=== PATIENT | male | born 1975 | race Caucasian/White ===

== ENCOUNTER → 2020-11-29 16:11 | Outpatient (CLI) | payer MEDICAID, SELFPAY ==
[2020-11-29 17:28] LABS: Absolute Neutrophil Count 4.2 X10^3/uL (2.0-7.7); Basophil# 0.05 X10^3/uL; Basophil% 0.7 % (0-1); Eosinophil# 0.21 X10^3/uL; Eosinophils% 2.8 % (0-5); Hematocrit 45.5 % (40-54); Hemoglobin 15.2 g/dL (13.0-16.5); Lymphocyte % 31.1 % (19-41); Mean Corp Hgb Conc 33.4 g/dL (32-36); Mean Corpuscular Hgb 28.9 pg (27.0-32.0); Mean Corpuscular Volume 86.5 fL (80-94); Monocyte# 0.61 X10^3/uL; Monocyte% 8.2 % (0-10); NRBC Flagged by Analyzer 0 % (0-5); Neutrophil # 4.16 X10^3/uL (2.7-7.7); Neutrophil % 56.3 % (47-70); Platelet Count 273 K/mm3 (150-450); RBC Distribution Width CV 12.9 % (11.6-14.6); RBC Distribution Width SD 40.3 fl (35.1-43.9); Red Blood Count 5.26 M/mm3 (4.6-6.2); White Blood Count 7.4 K/mm3 (4.4-11.0)
[2020-11-29 18:16] LABS: AST(SGOT) 30 U/L (15-37); Alanine Aminotransfer ALT/SGPT 60 U/L (16-61); Albumin, Serum 4.2 g/dL (3.2-5.0); Alkaline Phosphatase 146 U/L (45-117); Anion Gap 5 (5-15); BUN 16 mg/dL (7-18); BUN/Creat Ratio 16.2 RATIO (10-20); Calcium,Total 9.3 mg/dL (8.5-10.1); Chloride 103 mmol/L (98-107); Creatinine, Serum 0.99 mg/dL (0.70-1.30); EST Glomerular Filtration Rate 87 mL/min (>60); Est Glom Filt Rate - Afr Amer 105 mL/min (>60); Globulin 4.2 g/dL (2.2-4.2); Glucose 84 mg/dL (74-106); Magnesium 2.6 mg/dL (1.6-2.6); Potassium 3.8 mmol/L (3.5-5.1); Protein, Total 8.4 g/dL (6.4-8.2); Sodium Level 136 mmol/L (136-145); Thyroid Stim Hormone (TSH) 1.57 uIU/mL (0.358-3.74)
== END ==
PROVIDERS: PCP Family Medicine; Referring Provider Family Medicine; Visit Provider Family Medicine
DX: M62.838 Other muscle spasm (principal); R53.83 Other fatigue
CPT/HCPCS: 36415; 80053; 83735; 84443; 85025

== ENCOUNTER → 2021-01-14 15:31 | Outpatient (CLI) | payer MEDICAID, SELFPAY ==
[2021-01-14 14:14] VITALS: BMI 29.5
--- NOTE | 2021-01-14 15:37 | RAD_ITS ---
STUDY: X-RAY - CERVICAL SPINE REASON FOR EXAM: Male, 46 years old. Cervicalgia TECHNIQUE: 3 view(s) of the cervical spine were obtained. COMPARISON: None FINDINGS: Normal anterior atlantoaxial articulation. Normal odontoid process. Normal cervical lordosis. Mild degree of disc space narrowing and spondylosis at the C5-C6 and C6-C7 levels. Normal visualized intervertebral neuroforamina. The soft tissue structures are unremarkable. RAD/Cerv Spine 2 or 3 Views IMPRESSION: Mild degree of disc space narrowing and spondylosis at the C5-C6 and C6-C7 levels. Electronically Signed: Lucas Palma MD at 13:44 EDT , Service support ,
[2021-01-14 18:04] LABS: Vitamin B12 555 pg/mL (211-911)
== END ==
LOC: RAD 15:35 → LAB 15:46
PROVIDERS: PCP Family Medicine; Referring Provider Psychiatry & Neurology Neurology; Visit Provider Psychiatry & Neurology Neurology
DX: R53.83 Other fatigue (principal); M47.812 Spondylosis without myelopathy or radiculopathy, cervical region; M48.02 Spinal stenosis, cervical region
CPT/HCPCS: 36415; 72040; 82607; 82746

== ENCOUNTER → 2021-02-08 06:56 | Outpatient (CLI) | payer MEDICAID, SELFPAY ==
[2021-01-14 14:14] VITALS: BMI 29.5
--- NOTE | 2021-02-08 07:55 | TELEMED_ITS ---
[facility] has confirmed receipt of a request for visit. This document confirms receipt of the order initiating the consult. To find the results of the consultation, please view the patient's reports for the scanned Telemed Consult.
== END ==
PROVIDERS: PCP Family Medicine; Referring Provider Psychiatry & Neurology Neurology; Visit Provider Psychiatry & Neurology Neurology
DX: F81.9 Developmental disorder of scholastic skills, unspecified (principal)
CPT/HCPCS: 95819

== ENCOUNTER → 2021-02-14 16:00 | Outpatient (CLI) | payer MEDICAID, SELFPAY ==
[2021-02-14 15:10] VITALS: BMI 29.5
--- NOTE | 2021-02-14 16:07 | RAD_ITS ---
STUDY: X-RAY - LUMBAR SPINE REASON FOR EXAM: Male, 46 years old. Chronic Low Back Pain/ BL Sciatica for months TECHNIQUE: 3 view(s) of the lumbar spine were obtained. COMPARISON: None FINDINGS: Normal lumbar lordosis. There is no substantial scoliosis. There is a normal alignment of the vertebrae. Normal vertebral bodies and endplates. Normal disc space heights. The soft tissue structures are unremarkable. RAD/Lumbar Spine 2 or 3 Views IMPRESSION: Normal x-ray examination of the lumbar spine. Electronically Signed: Mack Gordon MD at 8:37 EDT Tel , Service support ,
== END ==
PROVIDERS: PCP Family Medicine; Referring Provider Psychiatry & Neurology Neurology; Visit Provider Psychiatry & Neurology Neurology
DX: M54.41 Lumbago with sciatica, right side (principal); M54.42 Lumbago with sciatica, left side; G89.29 Other chronic pain
CPT/HCPCS: 72100

== ENCOUNTER 2021-03-25 15:00 | Outpatient (RCR) | payer MEDICAID, SELFPAY ==
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
== END 2021-03-25 19:00 | disposition home or self-care (01) ==
LOC: PT 15:00
PROVIDERS: PCP Family Medicine; Referring Provider Family Medicine; Visit Provider Family Medicine
DX: M54.2 Cervicalgia (principal)
CPT/HCPCS: 97035; 97110; 97112; 97140; 97162; 97164; 97530

== ENCOUNTER → 2021-05-24 16:08 | Outpatient (CLI) | payer MEDICAID, SELFPAY ==
[2021-02-14 15:10] VITALS: BMI 29.5
[2021-05-24 17:58] LABS: PSA,Total - Annual Screen 2.98 ng/mL (0.00-4.00)
== END ==
PROVIDERS: PCP Family Medicine; Visit Provider Family Medicine
DX: R35.0 Frequency of micturition (principal); Z12.5 Encounter for screening for malignant neoplasm of prostate
CPT/HCPCS: 36415; 84153; G0103

== ENCOUNTER → 2022-05-27 | Outpatient (CLI) | payer MEDICAID, SELFPAY ==
[2022-05-27 15:35] LABS: PSA,Total- Diagnostic 3.05 ng/mL (0.0-4.0)
== END | disposition home or self-care (01) ==
LOC: MFPLAB 13:50
PROVIDERS: PCP Family Medicine; Referring Provider Family Medicine; Visit Provider Family Medicine
DX: R35.0 Frequency of micturition (principal)
CPT/HCPCS: 36415; 84153; 87086

== ENCOUNTER → 2022-06-03 | Outpatient (CLI) | payer MEDICAID, SELFPAY ==
--- NOTE | 2022-06-03 16:08 | US_ITS ---
STUDY: SCROTUM ULTRASOUND REASON FOR EXAM: Male, 47 years old. RLQ PAIN- near scar s/p hernia surgery TECHNIQUE: Ultrasound evaluation of the scrotum was performed with color Doppler and static van-scale imaging. COMPARISON: None. FINDINGS: RIGHT TESTICLE INTRATESTICULAR: There is a normal size of the right testicle. The right testicle measures 4.1 x 2.6 cm. There is a homogenous echotexture. There is normal arterial and normal venous vascularity. There is no demonstrated right testicular mass or cyst. EXTRATESTICULAR: The epididymis is normal in size. The epididymis head measures 0.7 x 0.8 cm. There is normal vascularity of the epididymis. There is a well-defined cystic structure within the epididymis, without internal echoes, consistent with an epididymal cyst. This measures 3 mm. There is no demonstrated hydrocele. There is no demonstrated varicocele. There is no demonstrated extratesticular mass or cyst. LEFT TESTICLE INTRATESTICULAR: There is a normal size of the left testicle. The left testicle measures 4.2 x 2.5 cm. There is a homogenous echotexture. There is normal arterial and normal venous vascularity. There is no demonstrated left testicular mass or cyst. EXTRATESTICULAR: The epididymis is normal in size. The epididymis head measures 0.8 cm. There is normal vascularity of the epididymis. There is no demonstrated epididymal cystic structure. There is no demonstrated hydrocele. There is no demonstrated varicocele. There is no demonstrated extratesticular mass or cyst. At the area described on the right lower quadrant , NO acute findings are noted. US/Testicular with Arterial Flow IMPRESSION: There are no acute findings of the bilateral testicles without evidence for torsion. Small right epididymal cyst. Electronically Signed: Piyush Dozier MD at 17:36 EDT ,
== END | disposition home or self-care (01) ==
LOC: US 16:06
PROVIDERS: PCP Family Medicine; Referring Provider Family Medicine; Visit Provider Family Medicine
DX: N50.3 Cyst of epididymis (principal); R10.31 Right lower quadrant pain
CPT/HCPCS: 76870; 93976

== ENCOUNTER 2022-07-03 15:30 | Outpatient (RCR) | payer MEDICAID, SELFPAY ==
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
--- NOTE | 2022-07-03 15:45 | HP.OTDCSUM ---
It has been my pleasure to treat SARAN MG under orders from SINAN Saravia, for the diagnosis of L wrist strain, L Trapezius strain for a total of 5 visit(s). Please see the following information for a summary of their discharge status. % Improvement: 80 Objective/Function: Left family worker strength 60# no change from eval but no pain with resistive test. left lateral 16# increase from14#. left tripod pinch 18# increase from 12#. pt demo no difficulty with FMS-. pt agrees to D/C Patient Goals: Regain Strength, Decrease Pain, Return to Work, Decrease Swelling/Stiffness, Use Hand/Wrist/Arm Normally Again, Sleep Better Goal:: Pt will increase L family worker strength by 10-15# by d/c to complete ADL tasks Goal:: Pt will be IND with HEP upon d/c Goal:: Pt will complete a variety of FM activities with pain being less than 2/10 Plan: D/C Discharge Comments: pt has met goals and demo understanding of lifting ergo to avoid stress on left wrist as well as posture- pt agrees with d/c. If there are questions or concerns regarding this patient's occupational therapy, please fell free to call me at [phone]. Thank you for the referral of this patient. Sincerely, Itzel Campa, OTR/L, CHT
== END 2022-07-03 19:00 | disposition home or self-care (01) ==
LOC: OT 15:30
PROVIDERS: PCP Family Medicine; Referring Provider Physician Assistant Surgical; Visit Provider Physician Assistant Surgical
DX: S46.819D Strain of other muscles, fascia and tendons at shoulder and upper arm level, unspecified arm, subsequent encounter (principal); S66.912D Strain of unspecified muscle, fascia and tendon at wrist and hand level, left hand, subsequent encounter; X58.XXXD Exposure to other specified factors, subsequent encounter
CPT/HCPCS: 97110; 97166; 97530

== ENCOUNTER → 2023-02-09 | Outpatient (CLI) | payer MEDICAID, SELFPAY ==
--- NOTE | 2023-02-09 16:58 | CT_ITS ---
STUDY: CT FACIAL BONES WITHOUT CONTRAST REASON FOR EXAM: Male, 48 years old. CHRONIC SINUSITIS. Chronic nasal congestion. RADIATION DOSAGE (If Supplied By Facility): CTDIvol = ( 33.06 ) mGy, DLP = ( 676.83 ) mGycm TECHNIQUE: The patient was scanned in a multi detector CT scanner. Sagittal and coronal images were reconstructed. Individualized dose optimization techniques were used for this CT. COMPARISON: None. FINDINGS: Normal soft tissue structures. Normal orbital olvera and orbital contents. Normal nasal bones and anterior nasal spine. Normal facial bones. There is no demonstrated fracture. There is opacification of the right maxillary sinus. Nasal septal deviation toward the left side of the midline. CT/Sinus/Facial Bone IMPRESSION: Opacification of the right maxillary sinus. Nasal septal deviation towards the left side of the abdomen. Electronically Signed: Lucas Palma MD at 9:46 EDT ,
== END | disposition home or self-care (01) ==
LOC: CT 16:57
PROVIDERS: PCP Family Medicine; Referring Provider Specialist; Visit Provider Specialist
DX: J30.9 Allergic rhinitis, unspecified (principal); D84.9 Immunodeficiency, unspecified; J45.50 Severe persistent asthma, uncomplicated; R06.00 Dyspnea, unspecified; J32.9 Chronic sinusitis, unspecified; T78.3XXD Angioneurotic edema, subsequent encounter; T78.09XD Anaphylactic reaction due to other food products, subsequent encounter; E55.9 Vitamin D deficiency, unspecified; E07.9 Disorder of thyroid, unspecified; Z91.038 Other insect allergy status
CPT/HCPCS: 70486

== ENCOUNTER → 2023-03-13 | Outpatient (CLI) | payer MEDICAID, SELFPAY ==
--- NOTE | 2023-03-13 12:48 | RAD_ITS ---
STUDY: X-RAY CHEST REASON FOR EXAM: Male, 48 years old. DYSPNEA TECHNIQUE: Frontal and lateral views of the chest. COMPARISON: 11/07/2021. FINDINGS: The lungs are clear and expanded. There is no demonstrated pleural abnormality. Normal size heart. Normal mediastinum and brehane. Normal visualized pulmonary arteries. Normal visualized aortic arch and descending thoracic aorta. Normal visualized thoracic spine. Normal visualized ribs, clavicles, and shoulders. There is no demonstrated abnormality of the visualized soft tissue structures of the upper abdomen. RAD/Chest PA and Lateral IMPRESSION: Normal x-ray examination of the chest. Electronically Signed: Cayden eTrry MD at 21:39 EDT ,
[2023-03-13 13:26] LABS: Erythrocyte Sedimentation Rate 20 mm/hr (0-20)
[2023-03-13 13:28] LABS: Absolute Lymphocyte Count 1.85 X10^3/uL (0.83-4.51); Absolute Neutrophil Count 3.6 X10^3/uL (2.0-7.7); Basophil# 0.03 X10^3/uL; Basophil% 0.5 % (0-1); Eosinophil# 0.14 X10^3/uL; Eosinophils% 2.3 % (0-5); Hematocrit 42.8 % (40-54); Hemoglobin 14.4 g/dL (13.0-16.5); Lymphocyte # 1.85 X10^3/ul (0.83-4.51); Mean Corp Hgb Conc 33.6 g/dL (32-36); Mean Corpuscular Hgb 29.4 pg (27.0-32.0); Mean Corpuscular Volume 87.3 fL (80-94); Mean Platelet Vol. 9.5 fl (6.2-12.0); Monocyte# 0.55 X10^3/uL; Monocyte% 8.9 % (0-10); NRBC Flagged by Analyzer 0 % (0-5); Neutrophil # 3.57 X10^3/uL (2.7-7.7); Neutrophil % 57.8 % (47-70); Platelet Count 253 K/mm3 (150-450); RBC Distribution Width CV 13.1 % (11.6-14.6); RBC Distribution Width SD 41.5 fl (35.1-43.9); White Blood Count 6.2 K/mm3 (4.4-11.0)
[2023-03-13 13:57] LABS: Vitamin D,25 Hydroxy 32.2 ng/mL
[2023-03-13 14:08] LABS: ALB/GLOB Ratio 0.9 RATIO (0.9-2.4); AST(SGOT) 27 U/L (15-37); Alanine Aminotransfer ALT/SGPT 35 U/L (16-61); Albumin, Serum 3.7 g/dL (3.2-5.0); Alkaline Phosphatase 107 U/L (45-117); Anion Gap 7 (5-15); BUN 11 mg/dL (7-18); BUN/Creat Ratio 11.2 RATIO (10-20); Calcium,Total 9.5 mg/dL (8.5-10.1); Chloride 105 mmol/L (98-107); Creatinine, Serum 0.98 mg/dL (0.70-1.30); EST Glomerular Filtration Rate 87 mL/min (>60); Est Glom Filt Rate - Afr Amer 105 mL/min (>60); Globulin 3.9 g/dL (2.2-4.2); Glucose 97 mg/dL (74-106); Potassium 3.9 mmol/L (3.5-5.1); Protein, Total 7.6 g/dL (6.4-8.2); Sodium Level 139 mmol/L (136-145); Thyroid Stim Hormone (TSH) 0.93 uIU/mL (0.358-3.74)
[2023-03-19 10:09] LABS: Immunoglobulin A 293 mg/dL (90-386); Immunoglobulin E 565 IU/mL (6-495); Immunoglobulin G 979 mg/dL (603-1613)
== END | disposition home or self-care (01) ==
LOC: RAD 12:45
PROVIDERS: PCP Family Medicine; Referring Provider Specialist; Visit Provider Specialist
DX: R06.00 Dyspnea, unspecified (principal); D84.9 Immunodeficiency, unspecified; E07.9 Disorder of thyroid, unspecified; E55.9 Vitamin D deficiency, unspecified
CPT/HCPCS: 36415; 71046; 80053; 82306; 82784; 82785; 84443; 85025; 85652

== ENCOUNTER 2023-09-09 11:30 | Outpatient (RCR) | payer MEDICAID, SELFPAY ==
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
--- NOTE | 2024-01-27 14:55 | HP.OT.NRP ---
Patient Information Patient Information: SARAN MG was seen in my office for initial evaluation on 08/04/23. The following Plan of Care was established for this patient: POC Established Initial Frequency: 1-2x /Week Initial Duration: 4 Weeks Plan: Continue POC: 4 weeks (1-2x week) Anticipated Interventions Anticipated Interventions: Strengthening, Orthoses, Joint Protection/Energy Conservation, Ergonomic Education, Education re assistive Equipment, Education re Diagnosis and Home Program Last Seen Last Seen: This patient was last seen in our office 09/09/23. Pertinent comments regarding their Occupational therapy will appear below: pt was seen for 8 OT sessions. no further apts scheduled and due to time lapse in services pt is d/c. At this point I will be discontinuing this patient from occupational therapy. I would be happy to see this patient again in the future if found appropriate by the physician. Thank you! Itzel Campa, OTR/L, CHT
== END 2023-09-09 19:00 | disposition home or self-care (01) ==
LOC: OT 11:30
PROVIDERS: PCP Family Medicine; Referring Provider Family Medicine; Visit Provider Family Medicine
DX: M25.532 Pain in left wrist (principal)
CPT/HCPCS: 97110; 97166

== ENCOUNTER → 2024-07-25 | Outpatient (CLI) | payer MEDICAID, SELFPAY | END | disposition home or self-care (01) | LOC: LABSPEC 15:44 | PROVIDERS: Referring Provider Physician Assistant Surgical; Visit Provider Physician Assistant Surgical | DX: N39.0 Urinary tract infection, site not specified (principal) | CPT/HCPCS: 87086 ==

== ENCOUNTER 2024-09-02 15:15 | Emergency (ER) | payer MEDICAID, SELFPAY ==
[2024-09-02 15:16] VITALS: BP 145/98; PULSE 68; RESP 16; TEMP 36.8; O2SAT 99; BMI 26.4
--- NOTE | 2024-09-02 15:44 | EDS_ITS ---
HPI History of Present Illness Chief Complaint: Complaint Detail of Chief Complaint: Difficulty urinating. Informant: patient Onset/Context/Timing Onset: Days Context: - (Detailed HPI narrative) Timing: Intermittent Quality: Problems with stream when he urinates. Location: Current Severity: Not applicable Maximum Severity: No pain Worsened by: Problem with stream after urination has started Relieved by: Nothing Associated Symptoms Associated Symptoms: None Narrative Narrative: Patient is a 49-year-old male. He was seen at [facility] proximal month ago and diagnosed with a ureteral stone on the right. There is no documentation of the records on [facility]. Patient was sent in by his doctor for CAT scan to evaluate for retained stone in his penis. He presently has no pain. His only symptom is after he begins urination and has urinated for some time he has problems with the stream and begins to dribble. He has had no flank pain for the past month. He denies fever, chills night sweats. He denies dysuria, frequency, urgency or hematuria. He denies scrotal pain or swelling. He denies penile lesion or discharge. He has no history of STI. Prior similar symptoms: No Recent Illness/Hospitalization: No PFSH PFS Medical History Left ulnar fracture Trapezius muscle strain Acute bronchitis, unspecified History of right inguinal hernia History of kidney stones Arthritis Home Medications ?Medication ?Instructions ?Recorded ?Last Taken ?Type cetirizine 10 mg tablet 10 mg PO DAILY PRN 01/14/21 Unknown History famotidine 40 mg tablet 40 mg PO DAILY 02/14/21 Unknown History meloxicam 15 mg tablet 15 mg PO DAILY PRN pain #30 tabs 03/26/21 Unknown Rx nitrofurantoin 100 mg PO Q12 #14 CAPSULES 09/02/24 Unknown Rx monohydrate/macrocrystals 100 mg capsule Allergy/AdvReac Type Severity Reaction Status Date / Time No Known Allergies Allergy Verified 09/02/24 15:18 Family History Mother Seizures Depression Mental disorder Grandmother CVA (cerebral vascular accident) Grandfather Asthma Heart disease COPD (chronic obstructive pulmonary disease) Father Arthritis Diabetes Hypertension High cholesterol Social History Smoking Status: Never smoker Electronic Cigarette Use: not used second hand exposure: No alcohol intake: former substance use type: does not use ROS ROS ED Constitutional Constitutional ED: Denies chills, fever(s), subjective, sweats or weight loss Gastrointestinal Gastrointestinal: Denies nausea or vomiting Genitourinary Genitourinary ED: Denies dysuria, hematuria or urinary frequency Musculoskeletal Musculoskeletal: Denies back pain Integumentary Denies rash EXAM Physical Exam Const Vital Signs: 09/02/24 15:16 Temperature 98.2 F Temperature Source Oral Pulse Rate 68 Respiratory Rate 16 Blood Pressure 145/98 H Blood Pressure Mean 113 Pulse Ox 99 Oxygen Delivery Method Room Air Positive well nourished and well developed General Appearance ED: well developed and NAD; Negative for cyanotic HEENT Reports moist mucous membranes HEENT Narrative: Has atraumatic normocephalic. Ears normal. Eyes PERRL and EOMs intact bilaterally Resp normal respiratory effort and clear to auscultation bilaterally Cardio regular rate, regular rhythm, S1 normal heart sound, S2 normal heart sound and no murmurs GI normal to inspection, nondistended, normoactive bowel sounds, non-distended and no masses; Negative for hepatosplenomegaly Back/Spine no CVA tenderness Extremity normal to inspection Neuro oriented x3, CN's II-XII intact bilaterally and no sensory deficits noted Sensorium / Orientation: alert Psych mental status grossly normal Skin no rashes or lesions noted, no wounds and skin turgor normal General Skin Exam: elasticity normal MDM MDM MDM Narrative Medical decision making narrative: Patient sent by his physician. Based on my exam and history I am not concerned the patient has a stone in his urethra. Patient is circumcised. There is no stone noted at the meatus of the urethra. Palpation of the urethra is negative for any foreign body. Scrotum is normal. Testes are send bilateral no testicular, epididymal or swelling of the varicoceles with tenderness. There is no inguinal adenopathy or mass appreciated. There is no dermatologic lesions noted of the pelvis region. Patient has no discomfort in the perineum. With patient's history will obtain a basic metabolic panel to assess renal function. CBC to assess white count and differential. UA to assess for evidence of infection. X-ray of the pelvis was obtained. If there is a stone would expect to see it in the shaft of the penis on the x-ray. In my opinion CT is not warranted or justified. Records from outside hospital not available on [employer]. Secondary was asked to obtain CAT scan results from outside facility determine size of stone. And if the stone was in the kidney versus the ureter. History & Record Review Additional record(s) reviewed:: Prior outpatient record (CAT scan report from outside facility was obtained. Patient had a 3 mm stone within the proximal left ureter with mild left hydronephrosis. It would be highly unlikely that patient would have a would have retained stone in the urethra.), Prior ED visit and Prior labs Lab Data Attestation: I reviewed the patient's lab results. Lab results narrative: CBC is normal. Labs: Laboratory Results - last 24 hr 09/02/24 09/02/24 15:52 16:04 WBC 5.4 RBC 4.68 Hgb 13.3 Hct 41.3 MCV 88.2 MCH 28.4 MCHC 32.2 RDW Std Deviation 42.9 RDW Coeff of Reji 13.2 Plt Count 237 MPV 10.1 Immature Gran % (Auto) 0.400 Neut % (Auto) 56.4 Lymph % (Auto) 31.8 [place] % (Auto) 9.2 Eos % (Auto) 1.3 Baso % (Auto) 0.9 Absolute Neuts (auto) 3.0 Absolute Lymphs (auto) 1.70 Nucleated RBC % 0 Sodium 139 Potassium 3.9 Chloride 108 H Carbon Dioxide 28.0 Anion Gap 3 L BUN 13 Creatinine 0.95 Estim Creat Clear Calc 88.91 Est GFR (MDRD) Af Amer 109 Est GFR (MDRD) Non-Af 90 BUN/Creatinine Ratio 13.7 Glucose 94 Calcium 9.5 Urine Color Straw Urine Clarity Clear Urine pH 6.5 Ur Specific [place] 1.015 Urine Protein 30 H Urine Glucose (UA) Normal Urine Ketones Negative Urine Occult Blood 50 H Urine Nitrite Negative Urine Bilirubin Negative Urine Urobilinogen Normal Ur Leukocyte Esterase 25 H Urine RBC 0 SEEN Urine WBC 25-50 SEEN Ur Squamous Epith Cells 0 SEEN Urine Bacteria 1+ Urine Mucus 3+ Radiography Chest X-Ray - ED: 1 View and Read by ED Physician (Independent reviewed interpreted by me at 1623 is negative. The pelvic bones are normal. The entire shaft of the penis is seen on the image. There is no calcification noted.) Diagnostic Testing: Clinical Impression(s) from Imaging Studies Pelvis X-Ray 09/02/24 16:00 IMPRESSION: Normal x-ray examination of the pelvis. Electronically Signed: Héctor Gillespie MD at 16:29 EST , Treatment and Re-Evaluation :: Patient was informed of results. Patient states has had recent urinary tract infections. Culture was sent. He was started on nitrofurantoin. He does not have a urologist. Will refer him to Dr. Collier. Discharge Plan Triage Chief Complaint: Complaint ED Provider: Joe Roberts Dx/Rx/DC Orders Clinical Impression: Complicated urinary tract infection, Anxiety, History of renal calculi Instructions: ED Bladder Infection, Male (Adult) Prescriptions: New nitrofurantoin monohyd/m-cryst 100 mg capsule 100 mg PO Q12 Qty: 14 0RF No Action cetirizine 10 mg tablet 10 mg PO DAILY PRN famotidine 40 mg tablet 40 mg PO DAILY Patient Comments: TAKE 1 TABLET BY MOUTH WITH DINNER. meloxicam 15 mg tablet 15 mg PO DAILY PRN (Reason: pain) Qty: 30 0RF Primary Care Provider: Amy Armendariz Referrals: Amy Armendariz MD [Primary Care Provider] - 3-5 Days if not improving Ridge Collier MD [Med Staff - Active Staff] - 1-2 Weeks Print Language: Wolof Disposition Disposition: Home, Self Care
--- NOTE | 2024-09-02 16:00 | RAD_ITS ---
STUDY: X-RAY - PELVIS REASON FOR EXAM: Male, 49 years old. Complains of stone shaft of penis TECHNIQUE: One view of the pelvis was obtained. COMPARISON: None. FINDINGS: There is a non-specific bowel gas pattern. Normal visualized soft tissue structures. No coarse penile calcifications Normal bilateral iliac wings, sacroiliac joints and visualized sacrum. Normal visualized bilateral superior and inferior pubic rami. Normal pubic symphysis. Normal ischial tuberosities. Normal visualized right femoral head. Normal right acetabulum. Normal right hip joint. Normal visualized left femoral head. Normal left acetabulum. Normal left hip joint. RAD/Pelvis 1 or 2 Views IMPRESSION: Normal x-ray examination of the pelvis. Electronically Signed: Héctor Gillespie MD at 16:29 EST ,
[2024-09-02 16:06] LABS: Red Blood Cells-Urine 0 SEEN /hpf (0-5); Squamous Epithelial Cells - UA 0 SEEN /hpf (0-5)
[2024-09-02 16:12] LABS: Color, Urine Straw (Yellow); Glucose, Dipstick Normal (Normal); Ketone-Dipstick Negative (Negative); Leukocyte Esterase-Dipstick 25 /ul (Negative); Nitrite-Dipstick Negative (Negative); Occult Blood-Urine 50 /ul (Negative); Protein-Dipstick 30 mg/dl (Negative); Specific Gravity, Urine 1.015 (1.002-1.030); Urine Bilirubin Dipstick Negative (Negative); Urine Clarity Clear (Clear); Urine Urobilinogen Normal (Normal); Urine pH 6.5 (5.0 - 8.0)
[2024-09-02 16:22] LABS: Basophil# 0.05 X10^3/uL; Basophil% 0.9 % (0-1); Eosinophil# 0.07 X10^3/uL; Eosinophils% 1.3 % (0-5); Hematocrit 41.3 % (40-54); Hemoglobin 13.3 g/dL (13.0-16.5); Lymphocyte % 31.8 % (19-41); Mean Corp Hgb Conc 32.2 g/dL (32-36); Mean Corpuscular Hgb 28.4 pg (27.0-32.0); Mean Corpuscular Volume 88.2 fL (80-94); Mean Platelet Vol. 10.1 fl (6.2-12.0); Monocyte# 0.49 X10^3/uL; Monocyte% 9.2 % (0-10); NRBC Flagged by Analyzer 0 % (0-5); Neutrophil # 3.02 X10^3/uL (2.7-7.7); Neutrophil % 56.4 % (47-70); Platelet Count 237 K/mm3 (150-450); RBC Distribution Width CV 13.2 % (11.6-14.6); RBC Distribution Width SD 42.9 fl (35.1-43.9); Red Blood Count 4.68 M/mm3 (4.6-6.2); White Blood Count 5.4 K/mm3 (4.4-11.0)
[2024-09-02 16:28] LABS: Anion Gap 3 (5-15); BUN 13 mg/dL (7-18); BUN/Creat Ratio 13.7 RATIO (10-20); Calcium,Total 9.5 mg/dL (8.5-10.1); Chloride 108 mmol/L (98-107); Creatinine, Serum 0.95 mg/dL (0.70-1.30); EST Glomerular Filtration Rate 90 mL/min (>60); Est Glom Filt Rate - Afr Amer 109 mL/min (>60); Estimated Creatinine Clearance 88.91 ml/min; Glucose 94 mg/dL (74-106); Potassium 3.9 mmol/L (3.5-5.1); Sodium Level 139 mmol/L (136-145)
[2024-09-02 16:41] LABS: Bacteria 1+ /hpf (None Seen); Mucous, Urine 3+ /hpf (<or=2+); White Blood Cells 25-50 SEEN /hpf (0-5)
[2024-09-02] MEDS: Nitrofurantoin Macrocrystals 100 MG Capsule PO (17:03)
== END 2024-09-02 17:06 | disposition home or self-care (01) ==
PROVIDERS: Emergency Provider Emergency Medicine; PCP Family Medicine; Visit Provider Emergency Medicine
DX: N39.0 Urinary tract infection, site not specified (principal); F41.9 Anxiety disorder, unspecified; Z87.442 Personal history of urinary calculi
CPT/HCPCS: 72170; 80048; 81001; 85025; 99283; A4216

== ENCOUNTER → 2024-09-19 | Outpatient (CLI) | payer MEDICAID, SELFPAY ==
--- NOTE | 2024-09-19 14:57 | CT_ITS ---
STUDY: CT ABDOMEN AND PELVIS WITHOUT CONTRAST REASON FOR EXAM: Male, 49 years old. Flank pain RADIATION DOSAGE (If Supplied By Facility): CTDIvol = ( 8.50 ) mGy, DLP = ( 432.32 ) mGycm TECHNIQUE: Transaxial images were obtained from the dome of the diaphragm to the symphysis pubis without oral contrast, and without intravenous contrast. Sagittal and coronal images were reconstructed. Individualized dose optimization techniques were used for this CT. COMPARISON: None. FINDINGS: The visualized lung bases are unremarkable. The visualized portions of the heart are within normal limits. Normal liver. Normal gallbladder and extrahepatic biliary system. Normal spleen. Normal pancreas. Normal bilateral adrenal glands. There are tiny nonobstructive bilateral intrarenal calculi. Incidental note is made of a left retroaortic renal vein. There is a small hiatal hernia. Normal small intestine. Normal colon. The appendix is visualized and appears normal. There is scattered atherosclerotic calcification of the abdominal aorta, without a demonstrated aneurysm. Normal inferior vena cava. Normal retroperitoneum. Normal urinary bladder. There are prostatic calcifications. There is a small umbilical hernia containing fat. Bilateral neural hernias containing fat more prominent on the left side. Prominent soft tissue structure is seen in the anterior right hemipelvis. This may represent post right inguinal hernia repair if the patient has a history of prior surgery. Clinical correlation recommended. Normal osseous structures. CT/Abdomen/Pelvis without Cont IMPRESSION: Nonobstructive tiny bilateral intrarenal calculi. Prominent soft tissue structure in the fat seen in the anterior right lower quadrant suggestive possible postsurgical change. Clinical correlation recommended. Small umbilical hernia containing fat as well as bilateral inguinal hernias containing fat more prominent on the left side. Electronically Signed: Lucas Palma MD at 15:24 EST ,
== END | disposition home or self-care (01) ==
PROVIDERS: PCP Family Medicine; Referring Provider Family Medicine; Visit Provider Family Medicine
DX: R10.9 Unspecified abdominal pain (principal)
CPT/HCPCS: 74176

== ENCOUNTER → 2025-01-24 | Outpatient (CLI) | payer MEDICAID, SELFPAY ==
--- NOTE | 2025-01-24 12:47 | RAD_ITS ---
PROCEDURE: KNEE 4 OR MORE VIEWS 01/24/2025 REASON FOR EXAM: LEFT INJURY, LEFT CALF SWELLING TECHNIQUE: 4 view(s) of the left knee COMPARISON: None available FINDINGS: Bones: No acute fracture or dislocation. Quadriceps tendon enthesopathy. Joints: Joint spaces are well preserved. Effusion: No joint effusion Soft tissues: No soft tissue swelling Other: RAD/Knee 4 or More Views IMPRESSION: No acute osseous abnormality. Reading Location: [id number]
--- NOTE | 2025-01-24 15:11 | VDLE_ITS ---
Reason For Study Reason For Study: LLE Swelling RIGHT LEFT FV is compressible, spontaneous, phasic, competent GSV is normal. and demonstrates normal augmentation. CFV is compressible, spontaneous, phasic, competent, Procedure and demonstrates normal augmentation. This is a venous duplex using B-mode, color flow and FV is compressible, spontaneous, phasic, competent spectral Doppler. and demonstrates normal augmentation. Exam performed in department. POP V is compressible, spontaneous, phasic, competent The exam was diagnostic. and demonstrates normal augmentation. A preliminary report was called and/or faxed to T/P Trunk is compressible. [facility] office. PTV is compressible. LT PerV is compressible. VL/Venous Duplex US, Unilateral Interpretation Summary Deep veins of the left lower extremity are patent and compressible segmentally. There is no evidence of left lower extremity deep vein thrombosis. The left great saphenous vein appears patent an d compressible segmentally. Ordering Physician: Amy Armendariz Referring Physician: Amy Armendariz Performed By: Raleigh Mansfield RVT
== END | disposition home or self-care (01) ==
PROVIDERS: PCP Family Medicine; Referring Provider Family Medicine; Visit Provider Family Medicine
DX: R60.0 Localized edema (principal); M25.562 Pain in left knee
CPT/HCPCS: 73564; 93971

== ENCOUNTER 2025-02-27 17:00 | Outpatient (RCR) | payer MEDICAID, SELFPAY ==
--- NOTE | 2025-02-09 14:42 | HP.PTEVAL_ITS ---
Patient's Visit Information Visit Information Visit Information: SARAN MG is a 50 year old M referred to Physical Therapy by Amy Armendariz MD with a diagnosis of KNEE PAIN. Date of Evaluation: 02/09/25 Physical Therapist: Sandy Branham PT, Cert MDT Visit Plan Frequency: 2-3x /Week Duration: 4-6 Weeks Plan: 1. INSTRUCT IN USE OF LUMBAR SUPPORT IN SITTING AND PROPER BODY MECHANICS FOR BENDING AND LIFTING. 2. L LE ROM, STRETCHING AND STRENGTHENING INCLUDING MANUAL AND IASTM NEEDED. (WYATT LE HIP FLEXOR, HS AND CALF STRETCHING) 3. LOW BACK AND L KNEE CP, MH AND US NEEDED TO HELP DECREASE PAIN AND INFLAMMATION. 4. NEUTRAL SPINE CORE STABILITY EX'S. 5. WRITTEN HEP INSTRUCTIONS STARTING VISIT 1 OR 2 AND CONTINUING THROUGHOUT EPISODE OF CARE. Subjective Subjective: Work/Leisure: UNEMPLOYEED. 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 Disability: NO Present symptoms: L BACK, THIGH, KNEE, LEG, HEEL AND FOOT PAIN. PATIENT REPORTS HIS WHOLE L LEG TO HIS FOOT GETS TINGLY AND WARM AND HE GETS TIGHTNESS IN HIS CALF. Present since: ABOUT 2 WKS AGO Pain Scale: WORST 6/10, LEAST 2/10 Currently: 3/10 Is it getting better, worse or staying the same: STAYING THE SAME Commenced as a result of: DOING A LOT OF SQUATTING AT [employer] - CLEANING THE WALL ALL DAY Symptoms at onset: FELT AND HEARD SNAPPING AND CRACKING IN BOTH KNEES WHEN GETTING UP FROM PROLONGED SQUATTING POSITIONG THEN COULD BARELY WALK FOR 3 TO 4 DAYS. Worse: GETTING OUT OF BED, EXTENDING FOOT OUT FAST, GETTING UP TOO FAST, TWISTING WHILE BENDING, BENDING DOWN TOO FAR. Better: MELOXICAM, RIDING BIKE Disturbed sleep: NOT ANY MORE. Previous history/Previous treatment: H/O OF SCIATICA BUT MORE KNEE AND ANKLE PAIN THIS TIME. Treatment this episode: MELOXICAM Coughing/sneezing/straining: NEGATIVE Gait: ABNORMAL - SLOW AND STRAIGHT. CAN'T RUN. LIMPING ON LLE. Bowel or Bladder Dysfunction: NO Accidents: NO Unexplained weight loss: NO Imaging: PATIENT REPORTS RECENT KNEE X-RAY AND CALF US FOR BLOOD CLOT WERE NORMAL. PMH/Recent major surgery: UNREMARKABLE. Objective Objective: Sitting/Standing Posture: INCREASED KYPHOSIS. FH. RSH'S. NO RELEVANT LATERAL LUMBAR SHIFT IN STANDING. Other Observations: INDEP GAIT INTO PT WITHOUT ANY AD'S. INDEP TRANSFER SIT TO STAND WITHOUT UE ASSIST WITH R LE WB > LLE. INITIALLY LIMPING ON LLE WHEN INITIATING GAIT THEN GAIT SMOOTHS OUT. Sensory deficit: WYATT LE LIGHT TOUCH SENSATION GROSSLY INTACT AND SYMMETRICAL ROM deficit: WYATT LE HIP FLEX, HS AND CALF TIGHTNESS AND PATIENT UNABLE TO SQUAT AT LEAST PARTIALLY DUE TO FEAR. AT LEAST 90 DEG WYATT KNEE FLEX IN SITTING. PATIENT WALKING ON SLIGHTLY BENT KNEES AND EXTENDING WYATT KNEES TO AT LEAST -5 DEG WYATT OPEN CHAIN. NOT FULLY EXTENDING KNEES IN STANDING UPON REQUEST DUE TO C/O PAIN. Motor deficit: WYATT LE STRENGTH GROSSLY 5/5 WITH MMT'ING IN AVAILABLE RANGE Reflexes: UNABLE TO ELICIT WYATT LE DTR'S BUT PATIENT VERY GUARDED Dural Signs: NEGATIVE WYATT LE'S. Lumbar mvmt loss: flex - MOD TO RANJIT - INCREASES LLE AND P R LE POST PAIN - NW ext - MIN - NE R SG - MIN - DECREASES L HIP, THIGH, LEG - B L SG - MOD - INCREASES L HIP, THIGH, NB Core strength: POOR Palpation: TENDERNESS [id number] REGION. Balance/Special Test Scores Lower Extremity Functional Score: 67 Goals Goal 1:: DECREASE C/O BACK AND LLE SX'S BY AT LEAST 75% TO EASE ADL FUNCTION Goal Time Frame: 4-6 Weeks Goal 2:: IMPROVE BENDING, LIFTING, WALKING, BED TRANSFER, SQUATTING, RUNNING, ADL AND WORK FUNCTION TO PLOF WITH AT LEAST 5 POINT IMPROVEMENT ON LEFS QUESTIONNAIRE Goal Time Frame: 4-6 Weeks Goal 3:: INSTRUCT IN PROPHYLAXIS Goal Time Frame: 4-6 Weeks Rehabilitation Potential Physical Therapy Diagnosis: CORE WEAKNESS AND STIFFNESS WITH LE STIFFNESS AND C/O PAIN LIMITING ADL'S. Rehabilitation Potential: Good Anticipated Interventions Patient/Client Instruction: Educate patient on: Condition, Plan of Care and Risk Factors For the Purpose of:: To improve self management Therapeutic Exercise to Include: Strength training, Body mechanics, Postural training, Flexibilty training, Neuromotor development, In an aquatic setting and Dynamic Lumbar Stabilization For the Purpose of:: To decrease pain, To increase ROM, To improve muscle performance and motor function, To increase tolerance to activity/condition/position, To improve ability of physical actions for home/community/work/leisure, To improve gait and locomotor functions, To increase flexibility/ROM and To improve self management Manual Therapy Techniques to Include: Soft tissue mobilization For the Purpose of:: To decrease pain and To improve nutrient delivery to tissue Cryotherapy (ice pack, ice massage): Yes Thermo therapy (hot pack): Yes Ultrasound (thermal/non thermal): Yes For the Purpose of:: To decrease pain, To decrease swelling/inflammation and To improve nutrient delivery to tissue Text: Thank you for the opportunity to evaluate your patient. For Medicare and Medicare HMO plans, please review the plan of care and approve it. It will need to be FAXED BACK to us at [phone] for Medicare purposes. For Medicare only, by signing this I certify the plan of care. Please let me know if there are questions or concerns regarding this plan of care. Physician Signature: Date:
--- NOTE | 2025-02-27 17:38 | HP.PTDCSUM ---
Discharge Summary D/C summary: It has been my pleasure to treat SARAN MG referred by Amy Armendariz MD, with the diagnosis of KNEE PAIN for a total of 7 visit(s). Discharge Date: 02/27/25 Please see the following information for a summary of their discharge status. Subjective Subjective: PATIENT REPORTS HE IS DOING MUCH BETTER. STATES HE WAS REALLY HURTING WHEN HE FIRST CAME IN. REPORTS HE IS READY TO STOP THERAPY NOW THAT HE KNOWS WHAT TO DO AND NOT DO. REPORTS THIS IS THE BEST HE HAS FELT IN YEARS. Pain R knee: Pain Intensity (Out of 10): 0 R hip: Pain Intensity (Out of 10): 0 LB: Pain Intensity (Out of 10): 0 L hip: Pain Intensity (Out of 10): 0 Overall Improvement % Improvement: 90 Objective Objective/Function: PATIENT WAS SEEN TODAY FOR RE-ASSESSMENT OF PROGRESS TOWARD THE SET PT GOALS AND THE NEED FOR FURTHER PHYSICAL THERAPY VS READINESS FOR DISCHARGE. PATIENT IS NOW ABLE TO SQUAT AGAIN BUT HE UNDERSTANDS THAT HE SHOULD HE SHOULD TAKE FREQUENT BREAKS IF HE IS GOING TO SQUAT. HE REPORTS HE TOOK A 4 MILE BIKE RIDE YESTERDAY AND HELPED HIS DAD CUT UP A TREE TODAY AND HAS FELT GOOD. UPON EXAM TODAY: Lumbar mvmt loss: flex - MIN ext - MIN R SG - NIL L SG - MIN Core strength: FAIR Palpation: NO TENDERNESS WITH LUMBAR OR SACRAL PALPATION TODAY OTHER: PATIENT NOW HAS FULL WYATT KNEE EXTENSION AND IS ABLE TO STAND AND SIT ERECT WITHOUT C/O PAIN. ALL PT GOALS HAVE BEEN MET. PATIENT IS APPROPRIATE FOR AND AGREEABLE TO D/C. Goals Goal 1:: DECREASE C/O BACK AND LLE SX'S BY AT LEAST 75% TO EASE ADL FUNCTION Goal Progress: Goal Met Goal 2:: IMPROVE BENDING, LIFTING, WALKING, BED TRANSFER, SQUATTING, RUNNING, ADL AND WORK FUNCTION TO PLOF WITH AT LEAST 5 POINT IMPROVEMENT ON LEFS QUESTIONNAIRE Goal Progress: Goal Met Goal 3:: INSTRUCT IN PROPHYLAXIS Goal Progress: Goal Met Plan Plan: D/C TO HEP D/C Information d/c sentence: If there are questions or concerns regarding this patient's physical therapy, please feel free to call me at [phone]. Thank you for the referral of this patient. Sincerely, Sandy Branham, PT, Cert MDT Balance/Gait/Functional tests Balance/Special Test Scores Lower Extremity Functional Score: 78 Improvement % Improvement: 90
== END 2025-02-27 19:00 | disposition home or self-care (01) ==
LOC: PT 17:00
PROVIDERS: PCP Family Medicine; Referring Provider Family Medicine; Visit Provider Family Medicine
DX: M25.569 Pain in unspecified knee (principal)
CPT/HCPCS: 97110; 97140; 97162; 97530

== ENCOUNTER → 2025-08-28 | Outpatient (CLI) | payer MEDICAID, SELFPAY ==
[2025-08-28 11:47] LABS: Albumin, Serum 4.4 g/dL (3.5-5.0); Anion Gap 12 (5-15); BUN 17 mg/dL (4-19); BUN/Creat Ratio 18.2 RATIO (10-20); Calcium,Total 9.7 mg/dL (7.6-11.0); Carbon Dioxide 23.8 mmol/L (21.0-32.0); Chloride 102 mmol/L (98-108); Glucose 93 mg/dL (70-99); Potassium 4.0 mmol/L (3.3-5.1)
[2025-08-28 11:50] LABS: PTHIN 38 pg/mL (11-61)
== END | disposition home or self-care (01) ==
PROVIDERS: PCP Family Medicine; Referring Provider Internal Medicine Nephrology; Visit Provider Internal Medicine Nephrology
DX: N20.0 Calculus of kidney (principal)
CPT/HCPCS: 36415; 80069; 83970